=== PATIENT | female | born 1995 | race Caucasian/White ===

== ENCOUNTER 2022-06-21 08:45 | Emergency (ER) | payer BC ==
[~2022-06-21] VITALS: Ht 157.5 cm; Wt 7.7 kg
[2022-06-21 08:45] VITALS: BP_SYST 94
[2022-06-21] MEDS ORDERED: ONDANSETRON HCL 4 MG/2 ML VIAL IVP ONE (09:45)
[2022-06-21] MEDS ORDERED: KETOROLAC TROMETHAMINE 30 MG VIAL IVP ONE (09:45)
[2022-06-21] MEDS ORDERED: IBUP-1971 PO (10:14)
[2022-06-21] MEDS ORDERED: ONDA8TAB60 PO (10:14)
[2022-06-21 11:00] VITALS: BP_SYST 115
== END 2022-06-21 11:01 | disposition home or self-care (01) ==
LOC: SED 08:45
DX: R56.9 Unspecified convulsions (principal); R51.9 Headache, unspecified; R11.0 Nausea; M54.2 Cervicalgia; Z79.899 Other long term (current) drug therapy
CPT/HCPCS: 99284; 96374; 96375; J1885; J2405